=== PATIENT | female | born 1990 | race Caucasian/White ===

== ENCOUNTER 2018-10-06 09:38 | Emergency (ER) | payer MEDICAID ==
[~2018-10-06] VITALS: Ht 170.2 cm; Wt 81.6 kg
--- NOTE | 2018-10-06 09:51 | NUR ---
ED Nurse Note: Pt came in due to rt eye swelling and redness. Pt stated that it started last night. Her eye started bothering her so she took off her contacts and makeup. Pt states burning sensation. Redness and swelling noted. A + O x4. Ambulatory.
[2018-10-06 09:52] VITALS: BP 105/70
[2018-10-06] MEDS ORDERED: OCUFLOX5 ML RIGHT EAR (10:05)
[2018-10-06 10:11] VITALS: BP 102/87
--- NOTE | 2018-10-06 10:12 | NUR ---
ED Nurse Note: Discharge instructions given to pt. Answered all questions. Verbalized understanding. A + O x4. Ambulatory. ID band and Iv site removed. Left with all belongings. Left ER w/ steady gait.
--- NOTE | 2018-10-06 10:35 | Emergency Room Report ---
History of Present Illness General Chief Complaint: Eye Problems Source: Patient Present Illness HPI 28-year-old female presents ED for evaluation. Complaining of redness and swelling to her right eye since last night. Thinks she has a "eye infection". States that is itchy with lots of tears and crusting. Denies fevers or chills. Denies sick contacts or recent travel. Denies photophobia or change in visual acuity. No other aggravating relieving factors. Denies any other associated symptoms Allergies: Uncoded Allergies: SESAME (Allergy, Unknown, 10/06/18) TREE NUTS (Allergy, Unknown, 10/06/18) Patient History Past Medical History: none Past Surgical History: none Pertinent Family History: none Social History: Denies: smoking, alcohol use, drug use Last Menstrual Period: 09/30/2018 Now: No : 4 Para: 4 Immunizations: UTD Reviewed Nursing Documentation: PMH: Agreed; PSxH: Agreed Nursing Documentation-PMH Past Medical History: No Stated History Review of Systems All Other Systems: negative except mentioned in HPI Physical Exam Vital Signs Date Time Temp Pulse Resp B/P (MAP) Pulse Ox O2 Delivery O2 Flow Rate FiO2 10/06/18 09:42 99.5 91 18 106/69 95 Room Air Sp02 EP Interpretation: reviewed, normal General Appearance: no apparent distress, alert, GCS 15, non-toxic Head: normocephalic Eyes: right eye lid inflammation, right eye Scleral Injection; bilateral eye normal inspection, bilateral eye PERRL, bilateral eye EOMI, bilateral eye visual acuity ENT: hearing grossly normal, normal pharynx, no angioedema, normal voice Neck: normal inspection Respiratory: normal inspection Cardiovascular #1: normal inspection Gastrointestinal: normal inspection Rectal: deferred Genitourinary: no CVA tenderness Musculoskeletal: normal inspection Neurologic: alert, oriented x3, responsive, motor strength/tone normal, sensory intact, speech normal Psychiatric: normal inspection Skin: normal inspection Lymphatic: normal inspection Medical Decision Making Diagnostic Impression: Primary Impression: Conjunctivitis Qualified Codes: H10.9 - Unspecified conjunctivitis ER Course Hospital Course 28-year-old F presents to ED with R eye redness and watery discharge Differential diagnoses include: conjunctivitis, traumatic iritis, foreign body, corneal abrasion Clinical course Patient placed on stretcher. After initial history, physical exam revealed a female no acute distress. There is injected conjunctiva R eye. Pupils equally reactive to light bilaterally. No evidence of foreign body. Clinical findings consistent with conjunctivitis. Discussed findings with patient. We'll discharge with ofloxacin ophthalmic drops. Safe for discharge and close outpatient follow-up. Patient states she has a PMD contact precautions given as conunctivitis is extremely contagious Diagnosis - conjunctivitis Stable and discharged to home with prescription for Ocuflox. Followup with PMD/ Optho. Return to ED if symptoms recur or worsen Last Vital Signs Date Time Temp Pulse Resp B/P (MAP) Pulse Ox O2 Delivery O2 Flow Rate FiO2 10/06/18 10:11 99.1 75 16 102/87 98 Room Air Status: improved Disposition: HOME, SELF-CARE Condition: Stable Scripts Ofloxacin (OCUFLOX) 5 Ml Drops 1 DROP RIGHT EAR QID for 7 Days, ML Prov: Oscar Tristan MD 10/06/18 Referrals: [facility]ERR[facility] (PCP) Departure Forms: Return to Work Return to Work Date: Oct 11, 2018 Work Restrictions: None Patient Instructions: Bacterial Conjunctivitis, [id number] Oscar Tristan MD Oct 06, 2018 10:34
[2018-10-07] MEDS ORDERED: OCUFLOX5 ML LEFT EYE (11:42)
== END 2018-10-06 10:12 | disposition home or self-care (01) ==
LOC: EMR 10:00
DX: H10.9 Unspecified conjunctivitis (principal); Z91.018 Allergy to other foods
CPT/HCPCS: 99282

== ENCOUNTER 2018-10-07 11:21 | Emergency (ER) | payer MEDICAID ==
[~2018-10-07] VITALS: Ht 170.2 cm; Wt 81.6 kg
[~2018-10-07 11:21] MED LIST: OCUFLOX5 ML RIGHT EAR
[2018-10-07 11:24] VITALS: BP 108/69
--- NOTE | 2018-10-07 11:34 | NUR ---
ED Nurse Note: Pt. AAOx4. ambulatory. came in to ER due to L eye redness and discomfort. pt. was recently seen yesterday for the s/s but on her R eye. enies pain. no drainage. denies vision changes
[2018-10-07] MEDS ORDERED: OCUFLOX5 ML LEFT EYE (11:42)
[2018-10-07 11:45] VITALS: BP 108/69
--- NOTE | 2018-10-07 11:45 | NUR ---
ED Nurse Note: Pt. AAOx4. ambulatory. Left with steady gait. Pt. education done regarding d/c papers and prescriptions.Pt. verbalized the understanding of the teaching. ID armband removed.
--- NOTE | 2018-10-07 11:53 | Emergency Room Report ---
History of Present Illness General Chief Complaint: Eye Problems Source: Patient Present Illness HPI 28-year-old female presents ED for evaluation. Patient complaining of redness and itchiness to the left eye. Started today. Was seen here yesterday yesterday for same problem to her right eye. Was prescribed antibiotic eyedrops. States that she came back as she is not sure if she can take the same medication for both eyes. Denies pain. Denies fevers or chills. Denies photophobia or blurry vision. No other aggravating relieving factors. Denies any other associated symptoms Allergies: Uncoded Allergies: SESAME (Allergy, Unknown, 10/06/18) TREE NUTS (Allergy, Unknown, 10/06/18) Patient History Past Medical History: none Past Surgical History: none Pertinent Family History: none Social History: Denies: smoking, alcohol use, drug use Last Menstrual Period: 09/25/18 Now: No : 4 Para: 4 Immunizations: UTD Reviewed Nursing Documentation: PMH: Agreed; PSxH: Agreed Nursing Documentation-PMH Past Medical History: No Stated History Review of Systems All Other Systems: negative except mentioned in HPI Physical Exam Vital Signs Date Time Temp Pulse Resp B/P (MAP) Pulse Ox O2 Delivery O2 Flow Rate FiO2 10/07/18 11:24 98.6 89 18 108/69 98 Room Air Sp02 EP Interpretation: reviewed, normal General Appearance: no apparent distress, alert, GCS 15, non-toxic Head: normocephalic Eyes: bilateral eye PERRL, bilateral eye EOMI, bilateral eye visual acuity, bilateral eye Scleral Injection ENT: normal ENT inspection Neck: normal inspection Respiratory: normal inspection Cardiovascular #1: normal inspection Gastrointestinal: normal inspection Rectal: deferred Genitourinary: no CVA tenderness Musculoskeletal: normal inspection Neurologic: alert, oriented x3, responsive, motor strength/tone normal, sensory intact, speech normal Psychiatric: normal inspection Skin: normal inspection Lymphatic: normal inspection Medical Decision Making Diagnostic Impression: Primary Impression: Conjunctivitis Qualified Codes: H10.33 - Unspecified acute conjunctivitis, bilateral ER Course Hospital Course 28-year-old F presents to ED with bilateral eye redness and watery discharge Differential diagnoses include: conjunctivitis, traumatic iritis, foreign body, corneal abrasion Clinical course Patient placed on stretcher. After initial history, physical exam revealed a female no acute distress. There is injected conjunctiva and both eyes. Pupils equally reactive to light bilaterally. No evidence of foreign body. Clinical findings consistent with conjunctivitis. I saw patient yesterday for conjunctivitis of the right eye. Discharge patient on ofloxacin ophthalmic. I explained yesterday to the patient that it is highly contagious and she can likely infect her other eye and in fact others. Contact precautions and instructions given. I explained to the patient that she can continue the ofloxacin I prescribed yesterday for both eyes. I will provide her another prescription in case she runs out. I will also provide her with ophthalmology referrals. She normally wears contacts. I cautioned against contact use until her eyes are evaluated by early childhood education coordinator. Safe for discharge with close outpatient follow-up Diagnosis - conjunctivitis Stable and discharged to home with prescription for Ocuflox. Followup with PMD/ Optho. Return to ED if symptoms recur or worsen Last Vital Signs Date Time Temp Pulse Resp B/P (MAP) Pulse Ox O2 Delivery O2 Flow Rate FiO2 10/07/18 11:24 98.6 89 18 108/69 98 Room Air Status: improved Disposition: HOME, SELF-CARE Condition: Stable Scripts Ofloxacin (OCUFLOX) 5 Ml Drops 1 DROP LEFT EYE QID for 7 Days, ML Prov: Oscar Tristan MD 10/07/18 Referrals: Marciano George MD Departure Forms: Return to Work Return to Work Date: Oct 11, 2018 Work Restrictions: None Patient Instructions: Bacterial Conjunctivitis, [id number] Oscar Tristan MD Oct 07, 2018 11:53
== END 2018-10-07 11:45 | disposition home or self-care (01) ==
LOC: EMR 11:36
DX: H10.9 Unspecified conjunctivitis (principal); Z91.018 Allergy to other foods
CPT/HCPCS: 99282